=== PATIENT | female | born 2005 | race Caucasian/White ===

== ENCOUNTER 2024-11-04 17:09 | Emergency (ER) | payer OTHER ==
[~2024-11-04] VITALS: Ht 172.7 cm; Wt 101.1 kg
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
[2024-11-04] MEDS ORDERED: ONDANSETRON 4 MG TAB ODT SL ONE (18:30)
[2024-11-04] MEDS ORDERED: PROCHLORPERAZIN10 MG PO (18:32)
[2024-11-04 18:39] VITALS: BP 120/68
== END 2024-11-04 18:39 | disposition home or self-care (01) ==
LOC: ED 17:09
DX: K29.70 Gastritis, unspecified, without bleeding (principal); Z91.013 Allergy to seafood
CPT/HCPCS: 99283; A9270